=== PATIENT | male | born 1995 | race Caucasian/White ===

== ENCOUNTER 2018-08-13 15:00 | Emergency (ER) | payer MEDICAID ==
[~2018-08-13] VITALS: Ht 167.6 cm; Wt 55.0 kg
[2018-08-13 15:02] VITALS: BP 129/70; PULSE 62; RESP 16; Ht 167.6 cm; Wt 55.0 kg
[2018-08-13] MEDS ORDERED: KETOROLAC 30 MG INJ IV STA (15:26)
[2018-08-13] MEDS ORDERED: ONDANSETRON 4 MG INJ IV STA (15:26)
[2018-08-13] MEDS ORDERED: ONDA8TAB14 PO (17:14)
[2018-08-13] MEDS ORDERED: ACET500C5 PO (17:14)
--- NOTE | 2018-08-13 17:18 | ERD ---
ER Documentation Chief Complaint Chief Complaint pt bib abd pain x 3 days with vomiting HPI 23-year-old male presents with approximate 2-day history of vomiting and right lower abdominal wall pain. Vomit is nonbilious nonbloody. Denies any diarrhea, blood, urinary complaints. Denies any foreign travel or suspect food or sick contacts. Patient has a history of appendectomy. No fevers. ROS All systems reviewed and are negative except as per history of present illness. Medications Home Meds Active Scripts Ondansetron (Ondansetron Odt) 8 Mg Tab.rapdis, 8 MG PO Q6H PRN for NAUSEA AND/OR VOMITING, #8 TAB Prov:CIERRA GALVAN MD 08/13/18 Acetaminophen* (Tylophen*) 500 Mg Capsule, 1 CAP PO Q6H PRN for PAIN AND OR ELEVATED TEMP, #15 CAP Prov:CIERRA GALVAN MD 08/13/18 Reported Medications [none] No Conflict Check 12/06/12 Allergies Allergies: Coded Allergies: No Known Allergy (Unverified , 12/06/12) PMhx/Soc History of Surgery: No Anesthesia Reaction: No Hx Neurological Disorder: No Hx Respiratory Disorders: No Hx Cardiac Disorders: No Hx Psychiatric Problems: No Hx Miscellaneous Medical Probl: No Hx Alcohol Use: No Hx Substance Use: No Hx Tobacco Use: No Smoking Status: Never smoker FmHx Family History: No diabetes, No coronary disease, No other Physical Exam Vitals Vital Signs Date Temp Pulse Resp B/P (MAP) Pulse Ox O2 O2 Flow FiO2 Time Delivery Rate 08/13/18 98.3 62 16 129/70 98 15:02 (89) Physical Exam Const: No acute distress Head: Atraumatic Eyes: Normal Conjunctiva ENT: Normal External Ears, Nose and Mouth. Neck: Full range of motion. No meningismus. Resp: Clear to auscultation bilaterally Cardio: Regular rate and rhythm, no murmurs Abd: Soft, tender in his right lower abdomen. No Arias sign. No rebound., non distended. Normal bowel sounds. No psoas or obturator sign. No peritoneal signs. Skin: No petechiae or rashes Back: No midline or flank tenderness Ext: No cyanosis, or edema Neur: Awake and alert Psych: Normal Mood and Affect Result Diagram: 08/13/18 1540 08/13/18 1540 Results 24 hrs Laboratory Tests Test 08/13/18 15:40 White Blood Count 9.3 10^3/ul Red Blood Count 4.98 10^6/ul Hemoglobin 14.9 g/dl Hematocrit 42.8 % Mean Corpuscular Volume 85.9 fl Mean Corpuscular Hemoglobin 29.9 pg Mean Corpuscular Hemoglobin Concent 34.8 g/dl Red Cell Distribution Width 11.9 % Platelet Count 176 10^3/UL Mean Platelet Volume 10.8 fl Immature Granulocytes % 0.300 % Neutrophils % 81.3 % Lymphocytes % 12.6 % Monocytes % 5.0 % Eosinophils % 0.3 % Basophils % 0.5 % Nucleated Red Blood Cells % 0.0 /100WBC Immature Granulocytes # 0.030 10^3/ul Neutrophils # 7.6 10^3/ul Lymphocytes # 1.2 10^3/ul Monocytes # 0.5 10^3/ul Eosinophils # 0.0 10^3/ul Basophils # 0.1 10^3/ul Nucleated Red Blood Cells # 0.0 10^3/ul Urine Color YELLOW Urine Clarity CLEAR Urine pH 5.0 Urine Specific Herrin 1.012 Urine Ketones TRACE mg/dL Urine Nitrite NEGATIVE mg/dL Urine Bilirubin NEGATIVE mg/dL Urine Urobilinogen NEGATIVE mg/dL Urine Leukocyte Esterase TRACE Mariah/ul Urine Microscopic RBC 0 /HPF Urine Microscopic WBC 4 /HPF Urine Hemoglobin NEGATIVE mg/dL Urine Glucose NEGATIVE mg/dL Urine Total Protein NEGATIVE mg/dl Sodium Level 140 mmol/L Potassium Level 3.5 mmol/L Chloride Level 105 mmol/L Carbon Dioxide Level 25 mmol/L Anion Gap 10 Blood Urea Nitrogen 14 mg/dl Creatinine 0.79 mg/dl Est Glomerular Filtrat Rate mL/min > 60 mL/min Glucose Level 87 mg/dl Calcium Level 9.3 mg/dl Total Bilirubin 0.8 mg/dl Direct Bilirubin 0.00 mg/dl Indirect Bilirubin 0.8 mg/dl Aspartate Amino Transf (AST/SGOT) 22 IU/L Alanine Aminotransferase (ALT/SGPT) 24 IU/L Alkaline Phosphatase 87 IU/L Total Protein 7.9 g/dl Albumin 4.7 g/dl Globulin 3.20 g/dl Albumin/Globulin Ratio 1.46 Lipase 111 U/L Current Medications Medications Dose Sig/Chay Start Time Status Last (Trade) Ordered Route PRN Stop Time Admin Dose Reason Admin Ondansetron 4 mg ONCE STAT 08/13/18 DC 08/13/18 HCl (Zofran IV 15:26 15:35 Inj) 08/13/18 15:27 Ketorolac 30 mg ONCE STAT 08/13/18 DC 08/13/18 Tromethamine IV 15:26 15:35 (Toradol) 08/13/18 15:27 Procedures/MDM Patient presents with vomiting for 2 days and lower abdominal pain. IV was obtained. Given Zofran, Toradol. CBC and CMP normal. Urine shows trace leukocytes. Serial exam shows that patient has no more vomiting pain is completely resolved and abdomen is reassuring and benign. Doubt UTI as cause of symptoms so treatment deferred. Patient may have gastrointestinal virus. Is no signs of obstruction, acute abdomen, current concerning signs or symptoms. we will treat with Zofran, Tylenol, close observation at home, return precautions and primary care follow-up. The patient was stable with no new complaints during the ER course. Clinically, there is no current evidence to suggest meningitis, sepsis, acute abdomen, pneumonia, stroke, acute coronary sy ndrome, pulmonary embolism, aortic dissection or any other emergent condition appearing to require further evaluation or hospitalization. Patient counseled regarding my diagnostic impression and care plan. Prior to discharge all questions answered. Pt agrees with treatment plan and understands strict return precautions. Pt is instructed to follow up with primary care provider within 24- 48 hours. Precautionary instructions provided including instructions to return to the ER if not improving or for any worsening or changing symptoms or concerns. Departure Diagnosis: Primary Impression: Vomiting Vomiting type: unspecified Vomiting Intractability: unspecified Nausea presence: unspecified Qualified Codes: R11.10 - Vomiting, unspecified Additional Impression: Abdominal pain Abdominal location: right lower quadrant Qualified Codes: R10.31 - Right lower quadrant pain Condition: Stable Patient Instructions: Abdominal Pain, Vomiting (6Y-Adult) Additional Instructions: Horita los examines dice no tiene emferma mal, isabella es importante coma esta en el proximo elias. chequ 8-12 horas par mas dolor, especialamente derecho y abajo vomito , fiebre, nueva simptomas. CIERRA GALVAN MD Aug 13, 2018 17:18
== END 2018-08-13 17:38 | disposition home or self-care (01) ==
LOC: FTE 15:00
DX: R11.10 Vomiting, unspecified (principal); R10.31 Right lower quadrant pain
CPT/HCPCS: 36415; 80053; 81001; 83690; 85025; 96374; 96375; J1885; J2405; Z7502